=== PATIENT | female | born 2000 | race Caucasian/White ===

== ENCOUNTER 2024-12-15 16:38 | Inpatient (IN) | payer MEDICAID ==
[~2024-12-15] VITALS: Ht 175.3 cm; Wt 99.2 kg
--- NOTE | 2024-12-15 17:17 | ELECTROCARDIOGRAPH REPORT ---
[facility] Test Date: 2024-12-15 Test Time: 17:15:07 Pat Name: MIRELLA MINER Department: EMERGENCY ROOM Patient ID: [facility]-[id number] Room: Gender: F Dispatch Officer: : 2000 Requested By: SEBASTIAN MELARA Order Number: [id number] Reading MD: Dr. Mumtaz Johnson Measurements Intervals [place] Rate: 127 P: 42 AK: 148 QRS: 89 QRSD: 89 T: -21 QT: 302 QTc: 440 Interpretive Statements Sinus tachycardia Borderline repolarization abnormality Baseline wander in lead(s) V2 Electronically Signed On 12-15-2024 19:43:[address] Mumtaz Johnson Please click the below link to view image of tracing.
[2024-12-15 17:31] LABS: LEUKOCYTE ESTERASE ,URINE TRACE (Neg); NITRITES, URINE NEGATIVE (Neg); OCCULT BLOOD,URINE MODERATE (Neg)
[2024-12-15 17:42] LABS: MEAN PLATELET VOLUME 7.9 FL (7.4-10.4); RED CELL DISTRIBUTION WIDTH 14.2 % (11.5-14.5)
[2024-12-15 17:43] LABS: HCG SERUM QL POSITIVE
[2024-12-15 17:47] LABS: MUCUS STRANDS FEW /LPF (Neg); SQUAMOUS EPITHELIAL CELL,UR MANY /LPF (FEW); UA COLLECTION TYPE CLN CATCH MIDSTREAM
[2024-12-15 17:50] LABS: CREATININE 1.01 MG/DL (0.40-0.90); TOTAL CARBON DIOXIDE 22.8 MMOL/L (24-32); eCRCL 90 ML/MIN; eGFR 67 ML/MIN
[2024-12-15] MEDS: normal saline 1000ml 1,000 ML IV ONE ×2 (18:33→19:27)
--- NOTE | 2024-12-15 18:42 | Physician Documentation ---
History of Present Illness ~ Chief Complaint: Complications Stated Complaint: COMPLICATIONS Time Seen by MD: 17:19 OK to notify your PCP?: Yes Source: patient, RN/MD, RN notes reviewed, old records Mode of Arrival: POV, Ambulatory HPI 24-year-old female presenting with a fever. Patient reports that two days ago s he had a miscarriage. She was approximately seven weeks. She reports that today she developed a fever of about 101 at home. She also endorses some pain in her lower abdominal area. She states that is the his carriage consistent with some aris vaginal bleeding with clots but now has subsided for the most part. She denies any burning on urination, nausea, vomiting or any other associated symptoms. Medication Reconciliation Allergies: Coded Allergies: No Known Allergies (Unverified , 12/15/24) Scheduled Levofloxacin (Levofloxacin), 1 TAB PO DAILY Nirmatrelvir/Ritonavir (Paxlovid 300-100 mg Dose Pack), 1 EACH PO BID Discontinued Medications Home Med List (No Home Medications), (Reported) Past Medical History Past Medical History: No Pertinent History Review of Systems All Other Systems at this time: Reviewed and Negative Physical Exam Vital Signs: RN Vital Signs have been reviewed: Yes, Temperature: 100.1, Source: Oral, Heart Rate: 106, Respiratory Rate: 16, BP: 117/68, Pulse Oximetry: 99, Weight: 97.200 Oxygen Flow Rate: 0 Physical Exam I have reviewed the triage vitals. CONST: Well developed and well nourished. In no acute distress HENT: Head Atraumatic EYES: Pupils are equal, round and reactive to light. Normal conjunctiva NECK: Normal range of motion. Supple. CARDIO: Tachycardic. No murmurs, rubs, or gallops. S1, S2. PULM/CHEST: No respiratory distress. Lungs clear to auscultation. No wheeze ABD: Tenderness to palpation over the suprapubic area. , soft. Nondistended. Bowel sounds normal. No guarding. : Exam deferred MSK: No edema. No deformity. NEURO: Alert and oriented to person, place and time. Moving all extremities SKIN: Warm and dry. PSYCH: Normal mood and affect. Good eye contact. Progress Results/Orders Reviewed/noted all lab results: Yes Results/Orders Orders - LACI JANSEN MD Page Hospitalist (12/15/24 18:54) Fill Out Med Reconciliation (12/15/24 18:54) Completed Orders - LACI JANSEN MD Morphine 2mg/Ml Inj. (Morphine Inj.) (12/15/24 19:00) Vital Signs 12/15/24 12/15/24 12/15/24 12/15/24 16:44 17:54 17:59 19:00 Temp 100.1 Pulse 137 106 99 Resp 20 16 16 16 B/P (MAP) 143/87 117/68 (84) 130/72 (91) Pulse Ox 96 99 99 O2 Flow Rate 0 0 Laboratory Tests Test 12/15/24 17:14 12/15/24 17:21 12/15/24 18:40 Urine Specimen Description Cln catch midstream Urine Color Yellow Urine Clarity Slightly cloudy Urine pH 7.0 Urine Specific [place] 1.015 Urine Protein Negative Urine Glucose (UA) Negative Urine Ketones Negative Urine Occult Blood Moderate H Urine Nitrite Negative Urine Bilirubin Negative Urine Urobilinogen 0.2 Urine Leukocyte Esterase Trace H Urine RBC 3-10 Urine WBC 5-10 H Urine Squamous Epithelial Cells Many Urine Bacteria 2+ Urine Mucus Few Urine Culture Indicated Rejected for culture Volume Urine Centrifuged 10 ml Urine Comment White Blood Count 7.8 Red Blood Count 4.78 Hemoglobin 13.2 Hematocrit 39.5 Mean Corpuscular Volume 82.7 Mean Corpuscular Hemoglobin 27.6 Mean Corpuscular Hemoglobin Concent 33.3 Red Cell Distribution Width 14.2 Platelet Count 260 Mean Platelet Volume 7.9 Neutrophils (%) (Auto) 89.1 H Lymphocytes (%) (Auto) 4.2 L Monocytes (%) (Auto) 6.0 Eosinophils (%) (Auto) 0.4 Basophils (%) (Auto) 0.3 Neutrophils # (Auto) 7.0 Lymphocytes # (Auto) 0.3 L Monocytes # (Auto) 0.5 Eosinophils # (Auto) 0.0 Basophils # (Auto) 0.0 CBC Comment Sodium Level 135 Potassium Level 3.6 Chloride Level 102 Carbon Dioxide Level 22.8 L Anion Gap 10 Blood Urea Nitrogen 6 L Creatinine 1.01 H Estimated GFR/1.73 m2 67 BUN/Creatinine Ratio 5.9 L Glucose Level 105 H Calcium Level 8.9 Total Bilirubin 0.6 Aspartate Amino Transf (AST/SGOT) 12 Alanine Aminotransferase (ALT/SGPT) 24 Alkaline Phosphatase 78 Total Protein 8.2 Albumin 4.2 Globulin 4.0 Albumin/Globulin Ratio 1.1 Lipase 27 Procalcitonin < 0.05 Human Chorionic Gonadotropin, Qual Positive Chemistry Comments Lactic Acid Level 1.1 Microbiology Date/Time Source Procedure Growth Status 12/15/24 18:40 Blood Arm Left Blood Culture - Preliminary NO GROWTH AFTER 3 DAYS Resulted Re-Evaluation Re-Evaluation : Re-Evaluation: Improved Progress Patient was signed out to me by the morning physician. Patient on ultrasound may have retained products and the diagnosis of endometriosis. Antibiotics were then changed from cleaned up to Zosyn per Dr. Kris Jansen. Will consult tomorrow. Hospitalist has been paged for admission. Septic orders were added such as a blood cultures lactic acid procalcitonin.. Patient was then given morphine by me. Patient's laboratory work shows no anemia. No leukocytosis. Chemistry is also within normal limits except slight decrease carbon dioxide at 22.8 suggesting a hint of metabolic acidosis. BUN is six creatinine was 1.06. Glucose slightly elevated at 105 otherwise LFTs are within normal limits procalcitonin is negative hCG is positive. Continuous monitor interpretation shows sinus tachycardia heart rate 130s, no ectopy, abnormal, my interpretation. Pulse oximetry monitor interpretation shows normal oxygenation at 97% room air, normal, my interpretation. Medical Decision Making Additional info obtained from: old records Urinary Diff Dx:Considerations: Include: Post-Op complication, UTI, Other Genital Diff Dx:Considerations: Include: -Complete, - Incomplete, -Inevitable, Ablortion-Missed, -Threatened, Cervicitis, Dsymenorrhea, Ectopic , Intrauterine , Menorrhagia, Menometrorrhagia, Menstrual bleeding, Myomatous uterus, , Vaginitis(osis)-Atrophic, Vaginitis, Vaginitis(osis)-Bacterial, Vaginitis(osis)- Candidal, Vaginitis(osis)-Contact, Other Additional Comment This is a 24-year-old female presenting with potential and did not meet neuritis with retained products of conception after a miscarriage. Patient is febrile with a temperature of 100.1 here in the ED. Furthermore she was tachycardic. The patient was started on IV clindamycin as well as IV Zosyn. She was given IV normal saline as well which improved her heart rate. equipment application specialist-Dr. Jansen was consulted who will see the patient. He recommended admission and IV antibiotics at this time. CT of the abdomen and pelvis was ordered as well. Patient will be signed out to the incoming ED physician but will eventually require admission. Departure Disposition: ADMITTED INPATIENT Admission Level of Care: Med/Surg with Tele Impression: Primary Impression: Retained products of conception Additional Impression: Endometritis Condition: Guarded Referrals: NO PRIMARY CARE PROVIDER (PCP) Prescriptions Levofloxacin (Levofloxacin) 500 Mg Tablet 1 TAB PO DAILY for 7 Days, #7 TAB Prov: ALBAROAnaVAL RES 12/17/24 Nirmatrelvir/Ritonavir (Paxlovid 300-100 mg Dose Pack) 300 Mg (150 Mg X 2)-100 Mg Tab.ds.pk 1 EACH PO BID for 4 Days, #8 TAB Prov: VAL HERRERA RES 12/17/24 Education Educated: Patient Educated regarding: diagnosis, treatment, need for follow up Critical Care Note Total Time (mins): 78 Critical Care Note The very real possibility of a deterioration of this patient's condition required the highest level of my preparedness for sudden, emergent intervention. I provided critical care services, which included medication orders, frequent reevaluations of the patient's condition and response to treatment, ordering and reviewing test results, and discussing the case with various consultants. Excludes time spent performing separately billable procedures. The critical care time associated with the care of the patient was. Signature Scribe Signature: No scribed Attestation: The note accurately reflects work and decisions made by me.Laci Jansen MD 12/15/24 19:11 SEBASTIAN MELARA MD Dec 15, 2024 18:42 LACI JANSEN MD Dec 15, 2024 18:56
[2024-12-15] MEDS ORDERED: iohexol 300mg/ml 100ml inj. ONE (18:48)
--- NOTE | 2024-12-15 19:11 | RADIOLOGY REPORT ---
PELVIC ULTRASOUND WITH TRANSABDOMINAL AND TRANSVAGINAL IMAGING CLINICAL HISTORY: 2d s/p miscarriage w/ fever COMPARISON: None TECHNIQUE: Transabdominal and transvaginal grayscale, color-flow Doppler, and duplex Doppler was per formed. FINDINGS: Uterus measures approximately 6.8 x 3.7 x 4.2 cm. Endometrial thickness approximately 0.3 cm. Endometrium appears slightly heterogeneous. No sizable a mount of fluid identified within the endometrial canal at this time. The right ovary measures 3.5 x 1.8 x 1.4 cm. The left ovary measures 2.1 x 1.5 x 1.6 cm. Both ovarie s demonstrate dopplerable blood flow on spectral analysis. Trace free fluid in the cul-de-sac. IMPRESSION: Mild heterogeneity of the endometrium. Recommend continued follow-up to exclude retained products of conception. No other acute Findings as visualized.
[2024-12-15] MEDS ORDERED: magnesium sulf-water 4G/100mL 100 ML IV PRN (19:15)
[2024-12-15] MEDS ORDERED: potassium Cl 20 mEq SR tablet PO PRN ×2 (19:15)
[2024-12-15] MEDS ORDERED: mag hydrox/Alum hydrox/simeth 30ml oral suspension PO PRN (19:15)
[2024-12-15] MEDS ORDERED: magnesium sulf-water 2g/50mL 50 ML IV PRN (19:15)
[2024-12-15] MEDS ORDERED: ondansetron/PF 4mg/2ml inj IV PRN (19:15)
[2024-12-15] MEDS ORDERED: magnesium hydroxide 30ml (MOM) UD suspension PO PRN (19:15)
[2024-12-15] MEDS ORDERED: magnesium Cl slow-release 64mg tablet PO PRN (19:15)
[2024-12-15] MEDS: piperacillin/tazo 3.375gm/50ml 50 ML IV SCH (19:31)
[2024-12-15] MEDS ORDERED: NO HOME MEDS (19:34)
[2024-12-15] MEDS: enoxaparin 40mg/0.4ml syringe SQ SCH (20:00)
[2024-12-15] MEDS: docusate sod 100mg capsule PO SCH (20:00)
--- NOTE | 2024-12-15 20:05 | RADIOLOGY REPORT ---
Exam: CT CT ABDOMEN PELVIS W/ IV CONTRAST History: Miscarriage two days ago with retained products- r/o endometritis Comparison Study: US ULTRASOUND PELVIS W/ORWO DPLX on DOS: 12/15/24 TECHNIQUE: Multidetector CT of the abdomen and pelvis with IV contrast. Axial, coronal and sagittal m ultiplanar reformats were obtained from the axial data set by the technologist. Radiation Dose Information: CT Dose: CTDI volume is 25.54 mGy. Dose-length product is 1425.79 mGy*cm FINDINGS: Bibasilar atelectasis. Partially visualized heart is unremarkable. Mild hepatosplenomegaly. Otherwise, liver, spleen, gallbladder, pancreas and adrenal glands unremark able. Kidneys, ureters and urinary bladder are unremarkable. Heterogeneous appearance of the lower uterine segment. Endometrial thickness of about 8 mm. No significant foci of air within the endometrium. Hamlet ateral adnexa are unremarkable. Stomach is unremarkable. Small bowel loops unremarkable. Appendix is not completely visualized with a visualized appendix unremarkable. Without complete visualization of the appendix, can not exclude a cute appendicitis. Small to moderate amount of fecal material within the colon. No evidence of intraperitoneal free air or free fluid. No evidence of aortic aneurysm or dissection. No significant lymphadenopathy. Soft tissues are unremarkable. No destructive osseous lesions are noted. IMPRESSION: No evidence of acute abdominopelvic abnormalities. Heterogeneous appearance of the lower uterine segment with endometrial thickness of 7 mm. Appendix is not completely visualized. Without complete visualization of the appendix, can not exclu de acute appendicitis.
--- NOTE | 2024-12-15 20:32 | HISTORY AND PHYSICAL-Residence ---
History & Physical Providers to CC Resident Creating Document: ALEKSANDER RAMÍREZ CC: OZZY ACOSTA MD ~ History of Present Illness Reason for Admit\Complaint: Pelvic pain/fever History of Present Illness Patient is a 24-year-old female with no significant medical history, P: 0, who came to the ED due to pelvic pain and fever. Patient had a miscarriage 2 days ago, she was 7 and 1/2 weeks , and she was seen at [facility]. This morning, she presented with fevers, chills, and back pain, 6/10 in intensity, radiating to hips/pelvis, continuous, described as stabbing, she denies any aggravating or attenuating factors. She also reports that her bleeding which has been decreases since the miscarriage turned dark today, but she denies any changes in smell. She denies dysuria, frequency or urgency, nausea, vomiting, diarrhea or any other subjective symptoms. In ED, she was found to be tachycardic with fever of 101, and she received IV antibiotics. Dr. Johnson (Obgyn) was consulted who recommended admission. Allergies: Coded Allergies: No Known Allergies (Unverified , 12/15/24) Home Medications Home Medications Active Reported No Home Medications (Home Med List) Each Past Medical History Past Medical History None Past Surgical History Surgical History Comment None Family History Family History: Patient reports no known family medical history. Past Social History Smoking: Non-Smoker Alcohol Use: Occasionally Drug Use: None Lives with: Spouse Lives In: Home ROS ROS All systems were reviewed and found negative except for pertinent positives mentioned in HPI Exam Vitals: Vital Signs Date Time Temp Pulse Resp B/P (MAP) Pulse Ox O2 Delivery O2 Flow Rate FiO2 12/15/24 19:56 99.3 106 15 123/78 (93) 100 12/15/24 17:59 0 General: General: awake, alert oriented to place, time, and person HEENT: No pallor present, no icterus, moist mucous membranes Neck: No masses and tenderness Resp: Unlabored. Lungs clear to auscultation bilaterally. Chest: Normal expansion Cardiovascular: Tachycardic, regular rhythm, normal S1 and S2 without murmur, rub or gallop Abdomen: Soft and tender to deep palpation in lower abdomen, no organomegaly, no guarding and rigidity, bowel sounds present Neuro: No focal weakness in the upper and lower limb muscles, power of the muscles 5/5 bilateral upper and lower extremities, normal reflexes bilaterally. Cranial nerves intact Extremities: No cyanosis,clubbing or edema Skin: Warm and Dry. No lesions Psych: Normal affect Diagnostic Data Last Recorded Lab Results: 12/15/24 1721 12/15/24 1721 Advance Care Planning Advanced Care plannin - 30 Minutes Additional Plan Patient is a 24-year-old female with no significant medical history, P: 0, who came to the ED due to pelvic pain and fever 2 days after miscarriage. Patient will be admitted for evaluation and management of endometritis and possible retention of products of conception. Dr. Johnson has been consulted. Sepsis likely 2/2 endometritis Possible retention of products of conception Sepsis criteria include fever, tachycardia and focus of infection White count and lactic acid are unremarkable UA was contaminated Pelvic ultrasound reported: Mild heterogeneity of the endometrium. Recommend continued follow-up to exclude retained products of conception. Patient received Zosyn and clindamycin in ED Will start gentamicin, ampicillin and metronidazole per guidelines recommendations Continue Tylenol 650 mg p.r.n. fever Morphine is ordered for pain control, however, patient declined Received 2 L of NS in ED. Will continue maintenance at 100 cc/hour Pending CT abdomen and pelvis Pending procalcitonin Above plan discussed with Dr. Johnson, who agrees with management. At this point he is unsure regarding retention of products of conception due to endometrium been only 0.3 cm. He will assess tomorrow Code Status: Full code DVT prophylaxis: Lovenox Analgesia/sedation: Morphine Nutrition: Regular diet. We will keep NPO after midnight in case of a possible procedure in a.m. Prognosis: Guarded Disposition: Admit to surgical unit. Continue medical management Aleksander Bazan MD Internal Medicine Resident PGY-2 Plan reviewed with bedside team. Patient seen through remote audiovisual assessment through HIPAA compliant setup. All labs, flowsheets, and images reviewed Cumulative nonprocedural care time spent in directed patient care = 30 min Date of Service: Dec 15, 2024 Billing Provider: OZZY ACOSTA MD, LEONARDO LUIS Dec 15, 2024 20:32 OZZY ACOSTA MD Dec 16, 2024 05:15
[2024-12-15 21:20] VITALS: BP 119/72; PULSE 107; RESP 16; TEMP 100.1; O2SAT 98
[2024-12-15 21:30] VITALS: RESP 16; O2SAT 98
[2024-12-15] MEDS: K and/or MAG REPLACEMENT MC SCH (22:00)
[2024-12-15] MEDS: normal saline 1000ml 1,000 ML IV SCH (22:26)
[2024-12-15] MEDS: GENTAMICIN IV SCH (22:27)
[2024-12-15] MEDS: NORMAL SALINE IV SCH (22:27)
[2024-12-15 22:47] VITALS: TEMP 98.1
[2024-12-16] MEDS: ampicillin inj 2 GM in normal saline 100ml IV soln 100 ML IV SCH (03:28)
[2024-12-16] MEDS: metroNIDAZOLE-Flagyl 500mg/NS 100 ML IV SCH (04:18)
[2024-12-16 04:55] LABS: MEAN PLATELET VOLUME 8.0 FL (7.4-10.4); RED CELL DISTRIBUTION WIDTH 14.0 % (11.5-14.5)
[2024-12-16 05:09] LABS: CREATININE 0.92 MG/DL (0.40-0.90); TOTAL CARBON DIOXIDE 24.8 MMOL/L (24-32); eCRCL 99 ML/MIN; eGFR 75 ML/MIN
[2024-12-16 06:00] VITALS: BP 127/73; PULSE 84; RESP 17; TEMP 99.8; O2SAT 99
[2024-12-16 08:00] VITALS: RESP 16; O2SAT 98
[2024-12-16 10:00] VITALS: BP 116/50; PULSE 83; RESP 18; TEMP 98; O2SAT 100
[2024-12-16] MEDS: potassium Cl 40MEQ/1/2NS 520ml 520 ML IV PRN (12:12)
[2024-12-16] MEDS: gentamicin inj 150 MG in normal saline 100ml IV soln 100 ML IV SCH (14:00)
[2024-12-16] MEDS: MESSAGE TO NURSING IV ONE ×2 (15:14→21:55)
[2024-12-16 18:00] VITALS: BP 111/68; PULSE 85; RESP 17; TEMP 99.6; O2SAT 98
--- NOTE | 2024-12-16 18:02 | PROGRESS NOTE- Residence ---
Progress Note - Resident Providers to CC Resident Creating Document: VAL AGUILA RES ~ Antibiotic Timeout Antibiotic Ordered?: Yes Subjective Patient seen and examined today. She is comfortably resting in the bed. Complains of abdominal pressure in the upper abdomen and mild abdominal pain in the lower abdomen. Has no vaginal bleeding now. Denies any fever or chills. Had sore throat few days back. Denies any other concerns. Mentioned that it with a spontaneous miscarriage and denies any surgical procedure being done. Objective Vital Signs Date Time Temp Pulse Resp B/P (MAP) Pulse Ox O2 Delivery O2 Flow Rate FiO2 12/16/24 15:23 15 12/16/24 10:00 98.0 83 116/50 (72) 100 Room Air 21 12/15/24 21:20 0.0 Result Diagram: 12/16/2443712/16/24437 General: Alert and oriented x 4 HEENT: Normocephalic and atraumatic. Pupils equal round and reactive to light and accommodation. Extraocular movements intact. Oral and nasal mucosa moist Neck: Trachea is in midline. No masses or JVD Lungs: Bilateral normal breath sounds. No crackles, rhonchi or wheezes Heart: Regular rate and rhythm. S1-S2 normal. No rubs or murmurs Abdomen: Soft, and nondistended. Mild tenderness in the lower abdomen. 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 CN II to XII grossly intact Extremities: No cyanosis, clubbing or edema Skin: Warm and dry Assessment Assessment Patient is a 24-year-old female with no significant medical history, P: 0, who came to the ED due to pelvic pain and fever 2 days after miscarriage. Patient will be admitted for evaluation and management of endometritis and possible retention of products of conception. Dr. Johnson has been consulted. Plan Plan Sepsis likely 2/2 endometritis Possible retention of products of conception Sepsis criteria include fever but less than 100.4, tachycardia and focus of infection No elevated white count pedal lactic acid normal. Procalcitonin negative. Elevated ESR and CRP On gentamicin 1.5 mg/kg/dose q.8h, ampicillin 2 g IV q.6h, shortness O 500 mg IV q.8h. OBGYN doctor - Dr. Johnson agreed to continue the antibiotics Continue normal saline at 100 cc/hour Dr. Johnson initially wanted to do a D&C tomorrow but she turned out to be COVID positive so no plan for any procedure Pelvic ultrasound reported: Mild heterogeneity of the endometrium. Recommend continued follow-up to exclude retained products of conception. Abdomen/pelvis CT showed No evidence of acute abdominopelvic abnormalities. Heterogeneous appearance of the lower uterine segment with endometrial thickness of 7 mm. Appendix is not completely visualized. Without complete visualization of the appendix, can not exclude acute appendicitis. COVID positive Denies any shortness of breath, not requiring oxygen Started Paxlovid Needs isolation Hypokalemia Continue replacement as per protocol Code Status: Full code DVT prophylaxis: Lovenox Nutrition: Regular diet. Val Aguila MD Internal Medicine Resident, PGY 3 Date of Service: Dec 16, 2024 Billing Provider: VAL AGUILA RES Common Visit Codes: [id number] INP/OBS CARE(HIGH) VAL AGUILA RES Dec 16, 2024 18:02 DARON GUARDADO MD Dec 16, 2024 18:52
[2024-12-16 20:00] VITALS: RESP 16; O2SAT 97
[2024-12-16] MEDS: NIRMATRELVIR/RITONAVIR 300/100mg - 1 EACH TAB.DS.PK PO SCH (20:10)
[2024-12-16 22:00] VITALS: BP 115/65; PULSE 72; RESP 13; TEMP 98.9; O2SAT 95
[2024-12-17 05:05] LABS: MEAN PLATELET VOLUME 8.0 FL (7.4-10.4); RED CELL DISTRIBUTION WIDTH 14.0 % (11.5-14.5)
[2024-12-17 05:10] LABS: CREATININE 0.99 MG/DL (0.40-0.90); TOTAL CARBON DIOXIDE 26.7 MMOL/L (24-32); eCRCL 92 ML/MIN; eGFR 69 ML/MIN
--- NOTE | 2024-12-17 05:34 | PROGRESS NOTE ---
DATE: 12/16/2024 DICTATING PHYSICIAN: Kris Johnson MD PHYSICIAN REQUESTING CONSULT: Danita Cote MD REASON FOR CONSULTATION: Presumed endometritis. HISTORY OF PRESENT ILLNESS: The patient is a 24-year-old 1, para 0, SAB1 female who presented to the ER on 12/15/2024 with complaints of pelvic pain and low-grade fever associated with body aches. The patient reports she had a miscarriage approximately 5 days ago, passing large clots and had been basically stable until yesterday when she developed symptoms mentioned above. The patient was approximately 7-1/2 weeks' gestation at the time of the miscarriage. The patient was noted to be tachycardic in the ER with a fever of 101. PAST MEDICAL HISTORY: Noncontributory. PAST SURGICAL HISTORY: None. SOCIAL HISTORY: The patient is . She is a nonsmoker and has no history of drug use. ALLERGIES: No known drug allergies. PHYSICAL EXAMINATION: GENERAL: The patient is alert, oriented, and in no acute distress currently. CURRENT VITAL SIGNS: Temperature is 98.0, blood pressure 116/50, pulse of 83, respiratory rate of 16, saturating 100% on room air. 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 ABDOMEN: Soft, nondistended, no palpable masses. There is exquisite suprapubic tenderness. PELVIC: Normal female external genitalia. There is minimal brownish blood in the vaginal vault. There is mild cervical motion tenderness localizing to the uterine fundus. The uterine fundus is very tender to palpation. HEENT: On further discussion, the patient did describe a sore throat since yesterday. SIGNIFICANT LABS: CBC: Her white count on 12/15/2024 was 7.8, a followup this morning was 3.7, hemoglobin of 10.3 this morning and a platelet count of 198. Chemistry panel revealed a normal creatinine level. No other significant findings. Blood cultures remain negative as of now. IMAGING: I reviewed the images and the reports of an ultrasound that was performed on 12/15/2024, which was significant for heterogeneous endometrium. Although it was documented as measuring approximately 3 mm, on the ultrasound, the images actually showed a significantly larger endometrium measuring at least 7.5 to 8 mm with heterogeneous debris within the uterus. The CT was performed also yesterday showing also an endometrium measuring approximately 7 mm. ASSESSMENT: In view of the patient's symptoms of pelvic pain and the ultrasound findings of heterogeneous endometrium, there is a possibility of retained products of conception which may be contributing to the patient's symptoms. However, because of the patient's respiratory symptoms of a sore throat, I have ordered a COVID test and if negative, I will proceed to D and C, which I have recommended to the patient. The risks, benefits, and alternatives of the procedure were discussed with the patient including infection and bleeding, the patient accepts bank blood if necessary. The patient also understands that there is a risk of uterine perforation with injury to internal organs including bowel, bladder, and all other structures in the vicinity. The patient verbalized understanding and agrees to proceed with a D and C if COVID is negative. PLAN: The plan is to follow up on the results of the COVID test and if it is negative, then we will proceed to a D and C tomorrow, 12/17/2024 in the afternoon. Kris Johnson MD TID: [id number] RECEIPT: [id number] ALEXIA/RODY
[2024-12-17 06:43] VITALS: BP 120/78; PULSE 76; RESP 16; TEMP 98.1; O2SAT 98
[2024-12-17 08:00] VITALS: RESP 14; O2SAT 98
[2024-12-17 10:00] VITALS: BP 124/81; PULSE 73; RESP 15; TEMP 98.6; O2SAT 97
[2024-12-17] MEDS ORDERED: LEVO-65 PO (11:09)
[2024-12-17] MEDS ORDERED: NIRM1TAB9 PO (11:09)
--- NOTE | 2024-12-17 19:41 | DISCHARGE SUMMARY-Residence ---
Discharge Summary Providers to CC Resident Creating Document: VAL AGUILA RES ~ Discharge Summary Admission Diagnosis: PELVIC INFLAMMATORY DISEASE Hospital Course DATE OF ADMISSION: 12/15/2024 DATE OF DISCHARGE: 12/17/2024 As in HPI: Patient is a 24-year-old female with no significant medical history, P: 0, who came to the ED due to pelvic pain and fever. Patient had a miscarriage 2 da ys ago, she was 7 and 1/2 weeks , and she was seen at [facility]. This morning, she presented with fevers, chills, and back pain, 6/10 in intensity, radiating to hips/pelvis, continuous, described as stabbing, she denies any aggravating or attenuating factors. She also reports that her bleeding which has been decreases since the miscarriage turned dark today, but she denies any changes in smell. She denies dysuria, frequency or urgency, nausea, vomiting, diarrhea or any other subjective symptoms. In ED, she was found to be tachycardic with fever of 101, and she received IV antibiotics. Dr. Johnson (Obgyn) was consulted who recommended admission. During the hospital stay, she was admitted for possible sepsis secondary to endometritis. She did not have any vaginal bleeding apart from spotting while passing urine. She remained stable and did not have any elevated temperatures our white count. OBGYN-Dr. Johnson was consulted and he kindly evaluated the patient. He initially plan to do a D&C but she was tested positive for COVID. She was asymptomatic and only had sore throat about few days back. Now, she denies any sore throat, cough, chest pain or fevers. So, she is started on Paxlovid. She is given all the information about service to [facility] and also was made to call to get an appointment. She is strongly educated to follow with the PCP or OBGYN within a week for further management. Mentioned that her abdominal pain improved as well. Today, she is stable for discharge back home. She received gentamicin 1.5 mg/kg per dose q.8h, ampicillin 2 g IV q.6h, metronidazole 500 mg IV q.8h during the hospital stay. Dr. Johnson was consulted and recommended for her to be discharged on Levaquin 500 mg once daily for a week. General: Alert and oriented x 4 HEENT: Normocephalic and atraumatic. Pupils equal round and reactive to light and accommodation. Extraocular movements intact. Oral and nasal mucosa moist Neck: Trachea is in midline. No masses or JVD Lungs: Bilateral normal breath sounds. No crackles, rhonchi or wheezes Heart: Regular rate and rhythm. S1-S2 normal. No rubs or murmurs Abdomen: Soft, and nondistended. Mild tenderness in the lower abdomen. Normoactive bowel sounds Genital: No vaginal bleeding and no significant abnormalities externally DOCUMENT COORDINATOR: No gross sensory or motor abnormalities. CN II to XII grossly intact Extremities: No cyanosis, clubbing or edema Skin: Warm and dry Discharge instructions: Please take pxlovid twice a day for 4 more days to complete a 5 day course. Strongly recommend contact isolation for 5-7 days. Recommend getting a covid test done after completing the course of paxlovid. Take levaquin 500mg once daily for a week as recommended by diabetes solutions specialist - Dr. Johnson. Strongly recommend to f/u with pcp and obgyn within a week after discharge. Please return to ER if you notice any vaginal bleeding, fever or chills or any other symptoms Val Aguila MD Internal Medicine Resident, PGY 3 Discharge Diagnosis\Comment: Sepsis ruled out COVID positive Possible endometritis Operations\Procedures: None Consultants: OBGYN-Dr. Johnson Complications: None Condition on DC: Stable New Medications: Levofloxacin (Levofloxacin) 500 Mg Tablet 1 TAB PO DAILY for 7 Days, #7 TAB Nirmatrelvir/Ritonavir (Paxlovid 300-100 mg Dose Pack) 300 Mg (150 Mg X 2)-100 Mg Tab.ds.pk 1 EACH PO BID for 4 Days, #8 TAB Discontinued Medications: Home Med List (No Home Medications) Each Discharge Summary: As above *Problems/Diagnosis: (1) Retained products of conception Status: Acute Total Time Spent on D/C: > 30 Minutes Date of Service: Dec 17, 2024 Billing Provider: DARON GUARDADO MD Common Visit Codes: 75637-FMO/OBS DISCH DAY >30min VAL AGUILA RES Dec 17, 2024 19:36 DARON GUARDADO MD Dec 17, 2024 19:49
== END 2024-12-17 14:11 | disposition home or self-care (01) | DRG 564 ==
LOC: ER 16:39 → ED HOLD 19:20 → EDBEDREQ 20:33 → SUR 3N 21:24
PROVIDERS: ADMIT Internal Medicine Sleep Medicine; ATTEND Internal Medicine
PROC: BW211ZZ Computerized Tomography (CT Scan) of Abdomen and Pelvis using Low Osmolar Contrast (ICD-10-PCS; principal; 2024-12-15)
DX: O03.0 Genital tract and pelvic infection following incomplete spontaneous abortion (principal); U07.1 COVID-19; E87.6 Hypokalemia
CPT/HCPCS: 36415; 74177; 76830; 76856; 80053; 81001; 82948; 83605; 83690; 83735; 84145; 84702; 84703; 85025; 85651; 86140; 86885; 86900; 86901; 87040; 87081; 87811; 93005; 93976; 96365; 99291; 99292; G0378; J0290; J1580; J2270; J2543; J3480; J3490; J7030; Q9967